=== PATIENT | female | born 1985 | race Hispanic/Latino ===

== ENCOUNTER 2019-09-16 03:26 | Inpatient (IN) | payer MEDICAID, OTHER, SELFPAY ==
[2019-09-16 04:03] LABS: Mean Corpuscular HGB CONC 33.6 g/dL (32.0-36.0); Mean Corpuscular Hemoglobin 27.5 pg (27.0-31.0); Mean Corpuscular Volume 81.7 fL (78.0-98.0); Mean Platelet Volume 7.9 fL (7.4-10.4); Platelet Count 296 thou/uL (130-400); Red Blood Cell (RBC) Count 4.74 mill/uL (4.20-5.40); White Blood Cell (WBC) Count 17.9 thou/uL (4.8-10.8)
[2019-09-16 04:30] LABS: Bilirubin Negative (Negative); Blood, Urine Negative (Negative); Clarity Clear (Clear); Glucose, Urine (Dipstick) Normal (Negative); Leukocyte 250 Leu/uL (Negative); Mucous/LPF Rare LPF (<2+); Nitrite Negative (Negative); Protein, Urine (Dipstick) Negative (Neg-Trace); RBC/HPF 0-3 HPF (0-3); Squamous Epithelial 0-3 HPF (0-3); Urobilinogen Normal mg/dL (Less than 2); WBC/HPF 21-50 HPF (0-3)
[2019-09-16 04:30] LABS: ALT (SGPT) 20 U/L (8-55); AST (SGOT) 18 U/L (5-34); Albumin 4.2 g/dL (3.5-5.0); Alkaline Phosphatase 97 U/L (40-110); Anion Gap 16 mmol/L (10-20); BUN (Urea Nitrogen) 11 mg/dL (7.0-18.7); Bilirubin, Total 0.4 mg/dL (0.2-1.2); Calc. Creatinine Clearance 0 mL/min (70-130); Calcium 9.4 mg/dL (7.8-10.44); Carbon Dioxide 18 mmol/L (22-29); Chloride 105 mmol/L (98-107); Estimated GFR-MDRD Greater than 90; Globulin 3.8 g/dL (2.4-3.5); Glucose 131 mg/dL (70-105); Potassium 3.6 mmol/L (3.5-5.1); Sodium 135 mmol/L (136-145)
[2019-09-16 04:35] LABS: Bacteria/HPF 1+ HPF (None Seen)
[2019-09-16 04:36] LABS: Band 9 % (5-11); Lymphocytes 4 % (21-51); MDiff Complete? YES; Monocytes 3 % (0-10); Neutrophil 84 % (42-75); Platelet Morphology Comment Appears Adequate; RBC Morphology Normal
[2019-09-16] MEDS ORDERED: cefTRIAXone\\ROCEPHIN 1 GM VIAL ONE (05:28)
[2019-09-16] MEDS ORDERED: Acetaminophen 500 MG TAB ONE (05:28)
[2019-09-16] MEDS ORDERED: Ondansetron PF 4 MG/2 ML Vial ONE (05:40)
[2019-09-16] MEDS ORDERED: Calcium Carbonate 500 MG ChewTAB PO PRN (06:55)
[2019-09-16] MEDS ORDERED: Ondansetron PF 4 MG/2 ML Vial IVP PRN (06:55)
--- NOTE | 2019-09-16 07:37 | RAD ---
Portable frontal chest radiograph: 09/16/2019 COMPARISON: None HISTORY: Fever and chills FINDINGS: Lungs are clear. Heart and mediastinal contours appear within normal limits. IMPRESSION: No acute findings.
--- NOTE | 2019-09-16 07:37 | ULT ---
PRELIMINARY REPORT/DIRECT RADIOLOGY/EMERGENCY AFTER HOURS PROCEDURE: EXAM: US Obstetrical, Complete <14 weeks CLINICAL HISTORY: Pelvic cramping pain, N/V, fever TECHNIQUE: Transvaginal and transabdominal imaging of the maternal pelvis and a <[address] [facility] image documentation. COMPARISON: None provided. FINDINGS: GESTATION: A CRL of 2 cm corresponds to 8 weeks 5 days with a heartbeat of 185 bpm UTERUS: Unremarkable. No myometrial mass. Measures 11.0 x 6.3 x 7.5 cm CERVIX: Closed. Unremarkable. OVARIES: Unremarkable. No mass. The RIGHT side measures 2.4 x 1.6 x 2.2 cm and the LEFT side measure s 2.7 x 1.8 x 2.4 cm FREE FLUID: No free fluid. IMPRESSION: Single viable intrauterine . No acute abnormality. ELECTRONICALLY SIGNED BY: Chino Zaman MD Sep 16, 2019 5:08:02 AM CDT FINAL REPORT: PELVIC ULTRASOUND: COMPARISON: None. HISTORY: female with nausea, vomiting, pelvic pain/cramping and fever. FINDINGS: I agree with the preliminary report. Intrauterine gestational sac present containing a feta l pole and yolk sac. heart rate is approximately 185-205 bpm. No ovarian mass. Ovaries demonstrate normal blood flow. Average age based on ultrasound is 8 weeks 3 days with estimated date of delivery on 04/24/2020. IMPRESSION: Single intrauterine gestation. No acute findings. Transcribed Date/Time: 09/16/2019 8:14 AM
[2019-09-16] MEDS: cefTRIAXone\\ROCEPHIN 1 GM in Sodium Chloride 0.9% 100 ML IVPB SCH (09:37)
[2019-09-16] MEDS: Sodium Chloride 0.9% 1,000 ML IV SCH ×3 (09:38→21:11)
[2019-09-16] MEDS: Acetaminophen 325 MG TAB PO PRN ×2 (09:41→16:57)
[2019-09-16] MEDS ORDERED: HYDROcodone/Acetaminophen 5/325 mg Tablet PO PRN (09:48)
[2019-09-16] MEDS ORDERED: Ketorolac Tromethamine 30 MG/ML VIAL IVP PRN (09:48)
[2019-09-16 09:49] VITALS: BMI 38.6
[2019-09-16] MEDS ORDERED: FLU VACC QS2019-20(6MOS UP)/PF 60 MCG/0.5 ML SYRINGE IM ONE (10:15)
[2019-09-16] MEDS: Fentanyl 100 MCG/2 ML VIAL SLOW IVP PRN ×3 (10:31→21:12)
--- NOTE | 2019-09-16 15:09 | HP ---
CHIEF COMPLAINT: Right flank pain. HISTORY OF PRESENT ILLNESS: This is a 34-year-old G3, P0, at 8 weeks 5 days intrauterine with complaints of severe right-sided flank pain ever since yesterday afternoon. The patient reports a sharp, stabbing pain, has difficulty getting comfortable and is constantly aching and sore. She has had fever and chills at home. Nausea, vomiting, and as well as migraine headaches. She denies any dysuria, frequency, urgency, abnormal urine appearance or odor. Reports the urine is currently clear. She denies any vaginal bleeding, vaginal discharge, constipation, or diarrhea. She does endorse a decreased appetite, some shortness of breath, but mainly because of splinting due to painful deep inspiration. No cough or upper respiratory symptoms. No chest pain. PAST MEDICAL HISTORY: Obesity and infertility. PAST SURGICAL HISTORY: Lithotripsy in 2016. SOCIAL HISTORY: Negative x3. FAMILY HISTORY: Noncontributory. REVIEW OF SYSTEMS: 12-point review of systems is negative except as noted in HPI. 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 No history of STDs. ANNE MARIE for this is approximately 04/20/2020. PHYSICAL EXAMINATION: VITAL SIGNS: T-max 102.6, pulse is 120, respirations 20, O2 saturation 100% on room air, blood pressure 118/67, weight is 225, BMI is 38.6. GENERAL: Appears uncomfortable, in no acute distress. Alert and oriented x3. CARDIAC: Tachycardic with a regular rhythm. CHEST: Clear to auscultation bilaterally. Some splinting is noted. ABDOMEN: Soft, nontender, nondistended. Slightly tender to the right side of the abdomen. No guarding or rebound. There is exquisite right-sided CVA tenderness. No left CVA tenderness. EXTREMITIES: No edema, cyanosis or clubbing. Pulses are 2+ bilaterally. PELVIC: Deferred. LABORATORY DATA: White count 17.9, neutrophils 84%, hemoglobin 13, hematocrit 38.7, platelets are 296. Sodium is mildly decreased at 135, potassium 3.6, BUN 11, creatinine 0.64, and glucose is 131, lactic acid 2.0. LFTs are normal. UA shows large leukocytes and 1+ bacteria and negative for blood. IMAGING: Pelvic ultrasound shows an IUP at 8 weeks 5 days with cardiac activity. Chest x-ray is negative. ASSESSMENT AND PLAN: This is a 34-year-old G3, P0, at 8 weeks 5 days by today's ultrasound, presenting with clinically right-sided pyelonephritis. Patient has no evidence of a stone on UA. We will treat patient empirically with Rocephin. Urine culture has been sent as well as blood cultures. Treat fever p.r.n. with Tylenol or NSAIDs as NSAIDs are safe in the first trimester of . Will also treat pain as needed. The patient is okay for regular diet at this time and Dr. Neville will assume care. Job ID: [id number]
[2019-09-17] MEDS: cefTRIAXone\\ROCEPHIN 1 GM in Sodium Chloride 0.9% 100 ML IVPB SCH (06:30)
[2019-09-17] MEDS: Sodium Chloride 0.9% 1,000 ML IV SCH ×2 (06:30→07:45)
[2019-09-17] MEDS: Fentanyl 100 MCG/2 ML VIAL SLOW IVP PRN (06:43)
--- NOTE | 2019-09-17 07:39 | PDOC.EVN ---
Event Note - Event Note Event Note: HD #2 S: Pain is still coming in waves, improved with pain medication, has had fentanyl and toradol overnight. Fever is getting lower. No N/V, radha reg diet. O: Tm 102.6 at 0945, 100.2 at 0000, currently afebrile, other vitals wnl NAD RRR CTAB soft nontender nondistended CVAT on right No edema A) 9w IUP with right sided pyelonephritis P) Clinically improving, cont rocephin, urine culture pending, will await ID and sensitivities to tailor outpt therapy. Cont prn pain meds, change to po only. No e/o stone on UA as no microscopic blood present. Do not feel renal sono is necessary at this time unless clinically not improving.
[2019-09-17] MEDS: HYDROcodone/Acetaminophen 5/325 mg Tablet PO PRN ×3 (11:25→23:56)
--- NOTE | 2019-09-17 18:18 | PDOC.EVN ---
Event Note - Event Note Event Note: Lab check: UCX presumed E Coli, full ID and susceptibility to follow
--- NOTE | 2019-09-17 18:23 | PDOC.EVN ---
Event Note - Event Note Event Note: I just added gent for double coverage as we await UCx. I added this due to the temp earlier today.
[2019-09-17] MEDS ORDERED: Gentamicin Sulfate 120 MG in Premix Bag 1 BAG IVPB SCH (18:30)
[2019-09-17] MEDS: Metoclopramide 10 MG/10 ML UDCUP PO SCH (20:48)
--- NOTE | 2019-09-17 21:55 | PRG ---
DATE OF SERVICE: 09/17/2019 TIME: 21:30. BED CHECK: The patient room is [id number]. In brief, I just saw the patient about 15 minutes ago at bedside. The patient states that she feels better, but still has some right flank pain. I discussed with her current use of IV Rocephin and the addition of gentamicin for better coverage of bacteria as we await the urine culture. SUBJECTIVE: Again, she states that she feels better, but does have some left-sided flank pain. OBJECTIVE: GENERAL: The patient is no acute distress. VITAL SIGNS: The patient's last temperature was 101.7 at around the 11 o'clock this morning. Her current temperature is 98.4, as of last check just before 2100. ABDOMEN: Soft and nontender. ANTIBIOTICS: Now Rocephin and gentamycin. ASSESSMENT: This is a patient of Dr. Neville, who is in the first trimester, about 9 weeks, with presumptive pyelonephritis with the urine culture that shows presumed Escherichia coli, but sensitivities are pending. She is on double coverage antibiotics for gram negatives (Rocephin and gentamicin). She states that she has a history of renal stones on the right and has required nephrostomy tube and "surgery" at [facility] in [place]. This was in 2016. Because of her history, I feel it is required to do a right renal ultrasound to make sure that there is no hydronephrosis or evidence of stones. I have discussed this with her and she is aware. It is important to note that the patient's initial urine did not show blood, but that does not necessarily rule out a renal pelvic stone. PLAN: 1. Continue dual antibiotics. 2. Check urine culture. 3. I have ordered a right renal ultrasound. Job ID: [id number]
[2019-09-18] MEDS: Sodium Chloride 0.9% 1,000 ML IV SCH ×2 (02:13→22:53)
[2019-09-18] MEDS: Acetaminophen 500 MG TAB PO PRN (02:17)
[2019-09-18 05:38] LABS: #Eosinphils 0.1 thou/uL (0.0-0.7); #Lymphocytes 2.2 thou/uL (1.20-3.40); #Monocytes 1.2 thou/uL (0.11-0.59); #Neutrophils 8.4 thou/uL (1.40-6.50); %Basophils 0.2 % (0.0-1.0); %Eosinophils 0.6 % (0.0-10.0); %Lymphocytes 18.3 % (21.0-51.0); %Monocytes 9.7 % (0.0-10.0); %Neutrophils 71.2 % (42.0-75.0); Hemoglobin 9.9 g/dL (12.0-16.0); Mean Corpuscular HGB CONC 32.6 g/dL (32.0-36.0); Mean Corpuscular Hemoglobin 27.2 pg (27.0-31.0); Mean Corpuscular Volume 83.3 fL (78.0-98.0); Mean Platelet Volume 7.7 fL (7.4-10.4); Platelet Count 248 thou/uL (130-400); Red Blood Cell (RBC) Count 3.65 mill/uL (4.20-5.40); White Blood Cell (WBC) Count 11.8 thou/uL (4.8-10.8)
[2019-09-18] MEDS: cefTRIAXone\\ROCEPHIN 1 GM in Sodium Chloride 0.9% 100 ML IVPB SCH (06:13)
--- NOTE | 2019-09-18 06:18 | PDOC.EVN ---
Event Note - Event Note Event Note: HD2 OBGYN Feels better Temp was 101.8 last night just prior tomidnight ABX: Rocephin and Gent Labs: Micro still pending. WBC improved from 18 to 11.8; Hct 38 to 30 Renal sono done 9Rt)...results pending A/P: 9 weeks o days with Pyelo on HD2...continue plan. Await culture from urine. Blood CX NGTD. Renal sono results pending (ordered for HX stones on right).
--- NOTE | 2019-09-18 08:03 | PDOC.EVN ---
Event Note - Event Note Event Note: Checked out to katherine TOSCANO...follow renal sono report
[2019-09-18] MEDS: Metoclopramide 10 MG/10 ML UDCUP PO SCH ×2 (08:12→20:04)
--- NOTE | 2019-09-18 09:42 | ULT ---
ULTRASOUND RENAL BILATERAL: HISTORY: Renal masses. Pyloric nephritis. COMPARISON: None. FINDINGS: The right kidney measures 13 x 4.8 x 6 cm without mass, hydronephrosis, or abnormal calcifications. Low-grade left-sided hydronephrosis with the kidney measuring 12.7 x 5.5 x 5.1 cm. The urinary bladder is unremarkable. IMPRESSION: Low-grade left-sided hydronephrosis. No renal mass or calculus is appreciated. A followup CT may be beneficial to evaluate for distal obstructive process. POS: CET
[2019-09-18] MEDS: HYDROcodone/Acetaminophen 5/325 mg Tablet PO PRN ×3 (10:34→20:03)
[2019-09-18] MEDS ORDERED: Gentamicin Sulfate 120 MG in Premix Bag 1 BAG IVPB SCH (12:00)
[2019-09-19] MEDS: Ibuprofen 800 MG TAB PO PRN ×2 (01:55→18:06)
--- NOTE | 2019-09-19 05:47 | PDOC.EVN ---
Event Note - Event Note Event Note: HD#3 Rocephin#3 9 1/7 weeks. Feeling much better. VSS AF No CVAT. UC shows E. coli sens. to Rocephin so Gent was DCed yesterday. Plan: Cont. Rocephin IV until 48 Hrs. AF.
[2019-09-19] MEDS: cefTRIAXone\\ROCEPHIN 1 GM in Sodium Chloride 0.9% 100 ML IVPB SCH (06:01)
[2019-09-19] MEDS: Metoclopramide 10 MG/10 ML UDCUP PO SCH ×2 (08:25→20:55)
[2019-09-19] MEDS: HYDROcodone/Acetaminophen 5/325 mg Tablet PO PRN (08:25)
[2019-09-19] MEDS: Ondansetron ODT 4 MG TAB PO PRN ×2 (08:29→18:09)
--- NOTE | 2019-09-19 14:16 | EKG ---
Test Reason : SEPSIS Blood Pressure : / mmHG Vent. Rate : 127 BPM Atrial Rate : 127 BPM P-R Int : 138 ms QRS Dur : 068 ms QT Int : 306 ms P-R-T Axes : 010 012 -10 degrees QTc Int : 444 ms Sinus tachycardia Otherwise normal ECG Confirmed by ADRIANA VILLAR DO ([id number]), senior editor NAZARIO WALTER ([id number]) on 09/19/2019 2:16:40 PM Referred By: Confirmed By:ADRIANA VILLAR DO
[2019-09-19] MEDS: Acetaminophen 500 MG TAB PO PRN ×2 (14:28→20:59)
[2019-09-19] MEDS: Sodium Chloride 0.9% 1,000 ML IV SCH (18:06)
[2019-09-20] MEDS: cefTRIAXone\\ROCEPHIN 1 GM in Sodium Chloride 0.9% 100 ML IVPB SCH (05:52)
[2019-09-20] MEDS: Acetaminophen 500 MG TAB PO PRN (05:57)
[2019-09-20] MEDS: Metoclopramide 10 MG/10 ML UDCUP PO SCH (07:39)
--- NOTE | 2019-09-20 08:27 | DIS ---
DATE OF ADMISSION: 09/16/2019 DATE OF DISCHARGE: 09/20/2019 ADMITTING DIAGNOSES: 1. Intrauterine at 8 weeks. 2. Pyelonephritis on the right side. DISCHARGE DIAGNOSES: 1. Intrauterine at 8 weeks. 2. Pyelonephritis on the right side. CONSULTATIONS: None. HOSPITAL COURSE: The patient is a 34-year-old female, who presented to the emergency room with fever and right-sided flank pain. She was evaluated and diagnosed with right-sided pyelonephritis and placed on Rocephin. She has been seen here now for the last 3 days on IV Rocephin, has been afebrile for the last 48 hours. Her urine cultures have come back positive for E. coli resistant to ampicillin and sensitive to cephalosporins, fluoroquinolones, Macrobid, and Zosyn. Today, is now more than 48 hours after her last febrile incident. She is feeling much better. She denies any flank pain. She is tolerating a diet and having much more energy. The patient is being discharged to home. She will continue her outpatient antibiotic course with Keflex 500 mg taken 3 times for a week, and thereafter, may be placed on Macrobid for suppression if her primary OB, Dr. Neville desires that route or monthly urine cultures. One of the two blood cultures also came back positive as gram-negative ham assuming E. coli. The patient is being discharged home. She has been given strict instructions to continue her medications and to follow up in [address] Neville, or to return should she experience fevers or increasing pain again. Job ID: [id number]
[2019-09-20 09:58] VITALS: BP 108/56; TEMP 98.5
== END 2019-09-20 10:13 | disposition home or self-care (01) | DRG 832 ==
LOC: ERS 03:26 → T4-B 06:55
PROVIDERS: ADMIT Family Medicine; ATTEND Family Medicine
DX: O98.811 Other maternal infectious and parasitic diseases complicating pregnancy, first trimester (principal); O23.01 Infections of kidney in pregnancy, first trimester; Z16.11 Resistance to penicillins; Z3A.08 8 weeks gestation of pregnancy; B96.20 Unspecified Escherichia coli [E. coli] as the cause of diseases classified elsewhere; G43.909 Migraine, unspecified, not intractable, without status migrainosus; O99.351 Diseases of the nervous system complicating pregnancy, first trimester; O99.211 Obesity complicating pregnancy, first trimester; E66.9 Obesity, unspecified
CPT/HCPCS: 36415; 71045; 76770; 76856; 80053; 80170; 81003; 81015; 83605; 84702; 85025; 87040; 87077; 87086; 87149; 87186; 87804; 93005; 96360; 96361; 96365; 96375; J0696; J1580; J1885; J2405; J3010; J3490; Q0162